=== PATIENT | female | born 1930 | race Caucasian/White ===

== ENCOUNTER 2020-06-18 16:57 | Inpatient (IN) ==
[2020-06-18 18:34] LABS: ABS Eosinophils 0.1 10^3/ul (0-0.6); ABS Lymphocytes 1.2 10^3/ul (1.0-4.8); ABS Monocytes 0.6 10^3/ul (0-0.8); Eosinophil % 1.5 %; Hematocrit 42 % (35-47); Hemoglobin 14.3 g/dL (12.0-16.0); Lymphocyte % 12.1 %; Mean Corpuscular HGB Conc 34 g/dL (31-36); Mean Corpuscular Hemoglobin 29 pg (27-31); Mean Corpuscular Volume 86 fL (80-97); Mean Platelet Volume 8.3 fL (7.4-10.4); Nucleated Red Blood Cells % 0.1; Platelet Count 208 10^3/uL (150-450); Red Blood Count 4.94 10^6 /uL (3.70-4.87); Red Cell Distribution Width 16 % (10-15)
[2020-06-18 18:49] LABS: Albumin 3.9 g/dL (3.2-5.2); Albumin/Globulin Ratio 1.3 (1-3); BUN/Creatinine Ratio 22.9 (8-20); C Reactive Protein 30.7 mg/L (<8.01); Calcium 9.3 mg/dL (8.6-10.3); EGFR African American 95.3 (>60); EGFR Non-African American 78.8 (>60); Potassium 3.8 mmol/L (3.5-5.0); Total Protein 6.9 g/dL (6.4-8.9)
[2020-06-18 18:52] LABS: Urine Appearance Turbid; Urine Bilirubin Negative (Negative); Urine Blood 1+ (Negative); Urine Color Yellow; Urine Glucose Negative (Negative); Urine Ketones Trace (Negative); Urine Nitrite Positive (Negative); Urine Protein Negative (Negative); Urine Specific Gravity 1.018 (1.010-1.030); Urine Urobilinogen Negative (Negative)
[2020-06-18 18:54] LABS: Urine Bacteria 3+ (Absent); Urine Red Blood Cell 3+(>10/hpf) (Absent); Urine White Blood Cell 3+(>20/hpf) (Absent)
[2020-06-18] MEDS ORDERED: Ondansetron 4 mg VIAL 2 MG/ML 2 ml VIAL IV PRN (19:52)
[2020-06-18] MEDS ORDERED: Senna TAB 8.6 mg TAB PO PRN (19:58)
[2020-06-18 20:25] LABS: Activated Partial Thrombo Time 29.7 seconds (26.0-38.0); INR 1.12 (0.82-1.09)
[2020-06-18] MEDS ORDERED: cefTRIAXone 1 gm/50 mL NS BAG 1 GM/50 ML BAG IVPB ONE (21:00)
[2020-06-18] MEDS ORDERED: Heparin 5000 UNITS/ML 1 mL VIAL SUBCUT SCH (22:00)
[2020-06-18] MEDS: NS 0.9% 1000 ml BAG 1,000 ML IV SCH (22:03)
[2020-06-19 06:59] LABS: ABS Eosinophils 0.1 10^3/ul (0-0.6); ABS Lymphocytes 1.4 10^3/ul (1.0-4.8); ABS Monocytes 0.7 10^3/ul (0-0.8); ABS Neutrophils 6.6 10^3/ul (1.5-7.7); Eosinophil % 1.4 %; Hematocrit 39 % (35-47); Hemoglobin 13.6 g/dL (12.0-16.0); Lymphocyte % 15.6 %; Mean Corpuscular HGB Conc 35 g/dL (31-36); Mean Corpuscular Hemoglobin 30 pg (27-31); Mean Corpuscular Volume 85 fL (80-97); Mean Platelet Volume 8.5 fL (7.4-10.4); Platelet Count 189 10^3/uL (150-450); Red Cell Distribution Width 15 % (10-15); White Blood Count 8.8 10^3/uL (3.5-10.8)
[2020-06-19 07:10] LABS: INR 1.16 (0.82-1.09)
[2020-06-19 07:29] LABS: BUN/Creatinine Ratio 21.9 (8-20); Calcium 8.8 mg/dL (8.6-10.3); EGFR African American 90.8 (>60); EGFR Non-African American 75.1 (>60); Potassium 4.2 mmol/L (3.5-5.0)
[2020-06-19] MEDS ORDERED: Morphine 2 MG/ML SYRINGE IV PRN (12:33)
[2020-06-19 13:24] LABS: INR 1.11 (0.82-1.09)
[2020-06-19] MEDS ORDERED: Heparin 5000 UNITS/ML 1 mL VIAL SUBCUT SCH (14:00)
[2020-06-19] MEDS ORDERED: fentaNYL 100 mcg/2 ml 50 MCG/ML VIAL ONE (15:55)
[2020-06-19] MEDS ORDERED: Clindamycin 900 MG/D5W BAG 900 MG/50 ML BAG IVPB ONE (16:06)
[2020-06-19] MEDS ORDERED: Ketamine HCL 50 mg/ml 10 ml VIAL (500 MG) ONE (16:10)
[2020-06-19] MEDS ORDERED: Midazolam 2 mg/2 ml VIAL 1 mg/ml 2 ml VIAL (2 mg) ONE (16:10)
[2020-06-19] MEDS ORDERED: Phenylephrine 40 mcg/mL 10mL (400mcg) SYRINGE ONE ×2 (17:26→18:05)
[2020-06-19] MEDS ORDERED: fentaNYL 100 mcg/2 ml 50 MCG/ML VIAL IV PRN (17:37)
[2020-06-19] MEDS ORDERED: HYDROcodone/ACETAMIN 5/325 mg TAB PO PRN (17:37)
[2020-06-19] MEDS ORDERED: DiMENhydriNATE IV 50 mg/ml 1 ml VIAL IV PUSH PRN (17:37)
[2020-06-19] MEDS ORDERED: Naloxone 0.4 mg VIAL 0.4 mg/ml 1 ml VIAL IV PRN (17:37)
[2020-06-19] MEDS ORDERED: Propofol 10 MG/ML 20 ML BTL ONE (18:02)
[2020-06-19] MEDS ORDERED: EPHEDrine (Pressors) 50 MG/ML VIAL ONE (18:05)
[2020-06-19] MEDS: NS 0.9% 1000 ml BAG 1,000 ML IV SCH (23:00)
[2020-06-19] MEDS: cefTRIAXone 1 gm/50 mL NS BAG 1 GM/50 ML BAG IVPB SCH (23:00)
[2020-06-20] MEDS: Clindamycin 600 MG/D5W BAG 600 MG/50 ML BAG IV SCH ×3 (02:51→18:35)
[2020-06-20 04:39] LABS: ABS Lymphocytes 0.7 10^3/ul (1.0-4.8); ABS Monocytes 0.9 10^3/ul (0-0.8); ABS Neutrophils 9.1 10^3/ul (1.5-7.7); Eosinophil % 0.2 %; Hematocrit 34 % (35-47); Hemoglobin 11.6 g/dL (12.0-16.0); Lymphocyte % 6.8 %; Mean Corpuscular HGB Conc 34 g/dL (31-36); Mean Corpuscular Hemoglobin 29 pg (27-31); Mean Corpuscular Volume 85 fL (80-97); Mean Platelet Volume 8.1 fL (7.4-10.4); Platelet Count 197 10^3/uL (150-450); Red Blood Count 4.03 10^6 /uL (3.70-4.87); Red Cell Distribution Width 15 % (10-15); White Blood Count 10.7 10^3/uL (3.5-10.8)
[2020-06-20 08:39] LABS: BUN/Creatinine Ratio 19.7 (8-20); Calcium 7.9 mg/dL (8.6-10.3); EGFR African American 111.7 (>60); EGFR Non-African American 92.4 (>60); Potassium 3.8 mmol/L (3.5-5.0)
[2020-06-20] MEDS: Enoxaparin 30 MG/0.3 ML SYR SUBCUT SCH (08:39)
[2020-06-20] MEDS: Docusate LIQ 100 MG/10 ML UDC PO SCH ×2 (08:44→22:19)
[2020-06-20] MEDS ORDERED: Magnesium Hydroxide LIQ 30 ML UDC PO PRN (09:19)
[2020-06-20] MEDS ORDERED: Senna TAB 8.6 mg TAB PO PRN (09:19)
[2020-06-20] MEDS: Polyethylene Glycol 3350 17 GM PACKET PO PRN (09:36)
[2020-06-20] MEDS ORDERED: NS 0.9% 1000 ml BAG 1,000 ML IV ONE (11:59)
[2020-06-20 12:05] LABS: Hematocrit 33 % (35-47); Hemoglobin 11.1 g/dL (12.0-16.0); Mean Corpuscular HGB Conc 34 g/dL (31-36); Mean Corpuscular Hemoglobin 29 pg (27-31); Mean Corpuscular Volume 85 fL (80-97); Mean Platelet Volume 8.5 fL (7.4-10.4); Platelet Count 222 10^3/uL (150-450); Red Blood Count 3.87 10^6 /uL (3.70-4.87); Red Cell Distribution Width 16 % (10-15)
[2020-06-20] MEDS: NS 0.9% 1000 ml BAG 1,000 ML IV SCH (13:01)
[2020-06-20 18:29] LABS: ABS Lymphocytes 1.2 10^3/ul (1.0-4.8); ABS Monocytes 0.9 10^3/ul (0-0.8); ABS Neutrophils 9.4 10^3/ul (1.5-7.7); Eosinophil % 0.3 %; Hematocrit 33 % (35-47); Lymphocyte % 10.3 %; Mean Corpuscular HGB Conc 34 g/dL (31-36); Mean Corpuscular Hemoglobin 29 pg (27-31); Mean Corpuscular Volume 86 fL (80-97); Mean Platelet Volume 8.6 fL (7.4-10.4); Platelet Count 202 10^3/uL (150-450); Red Blood Count 3.79 10^6 /uL (3.70-4.87); Red Cell Distribution Width 15 % (10-15); White Blood Count 11.5 10^3/uL (3.5-10.8)
[2020-06-20 20:50] LABS: C Reactive Protein 169.45 mg/L (<8.01)
[2020-06-20 21:21] LABS: Troponin I 0.15 ng/mL (<0.03)
[2020-06-20] MEDS: Magnesium Hydroxide LIQ 30 ML UDC PO SCH (22:19)
[2020-06-20] MEDS: cefTRIAXone 1 gm/50 mL NS BAG 1 GM/50 ML BAG IVPB SCH (22:19)
[2020-06-21 00:53] LABS: Troponin I 0.17 ng/mL (<0.03)
[2020-06-21] MEDS: NS 0.9% 1000 ml BAG 1,000 ML IV SCH ×2 (04:28→17:42)
[2020-06-21 06:04] LABS: ABS Lymphocytes 1.1 10^3/ul (1.0-4.8); ABS Neutrophils 9.6 10^3/ul (1.5-7.7); Eosinophil % 0.3 %; Hematocrit 33 % (35-47); Hemoglobin 11.3 g/dL (12.0-16.0); Lymphocyte % 9.6 %; Mean Corpuscular HGB Conc 34 g/dL (31-36); Mean Corpuscular Hemoglobin 29 pg (27-31); Mean Corpuscular Volume 85 fL (80-97); Mean Platelet Volume 8.3 fL (7.4-10.4); Nucleated Red Blood Cells % 0.1; Platelet Count 190 10^3/uL (150-450); Red Blood Count 3.89 10^6 /uL (3.70-4.87); Red Cell Distribution Width 16 % (10-15); White Blood Count 11.8 10^3/uL (3.5-10.8)
[2020-06-21 06:28] LABS: Anion Gap 4 mmol/L (2-11); CO2 Carbon Dioxide 29 mmol/L (22-32); Calcium 7.9 mg/dL (8.6-10.3); Chloride 106 mmol/L (101-111); Potassium 3.6 mmol/L (3.5-5.0); Sodium 139 mmol/L (135-145)
[2020-06-21 06:34] LABS: BUN/Creatinine Ratio 14.5 (8-20); Blood Urea Nitrogen 9 mg/dL (6-24); EGFR African American 109.7 (>60); EGFR Non-African American 90.6 (>60); Glucose 129 mg/dL (70-100)
[2020-06-21] MEDS: Docusate LIQ 100 MG/10 ML UDC PO SCH ×2 (07:30→21:36)
[2020-06-21 08:11] LABS: Troponin I 0.16 ng/mL (<0.03)
[2020-06-21] MEDS: Polyethylene Glycol 3350 17 GM PACKET PO PRN (09:48)
[2020-06-21] MEDS: Enoxaparin 30 MG/0.3 ML SYR SUBCUT SCH (09:48)
[2020-06-21] MEDS: Magnesium Hydroxide LIQ 30 ML UDC PO SCH ×2 (09:49→21:36)
[2020-06-21] MEDS: cefTRIAXone 1 gm/50 mL NS BAG 1 GM/50 ML BAG IVPB SCH (21:36)
[2020-06-22 05:36] LABS: ABS Eosinophils 0.2 10^3/ul (0-0.6); ABS Lymphocytes 1.5 10^3/ul (1.0-4.8); ABS Monocytes 0.8 10^3/ul (0-0.8); ABS Neutrophils 6.9 10^3/ul (1.5-7.7); Hematocrit 28 % (35-47); Mean Corpuscular HGB Conc 35 g/dL (31-36); Mean Corpuscular Hemoglobin 30 pg (27-31); Mean Corpuscular Volume 85 fL (80-97); Mean Platelet Volume 8.8 fL (7.4-10.4); Platelet Count 179 10^3/uL (150-450); Red Blood Count 3.34 10^6 /uL (3.70-4.87); Red Cell Distribution Width 15 % (10-15); White Blood Count 9.4 10^3/uL (3.5-10.8)
[2020-06-22 05:54] LABS: BUN/Creatinine Ratio 18.4 (8-20); Calcium 7.4 mg/dL (8.6-10.3); EGFR African American 143.9 (>60); EGFR Non-African American 118.9 (>60); Potassium 3.5 mmol/L (3.5-5.0)
[2020-06-22] MEDS: NS 0.9% 1000 ml BAG 1,000 ML IV SCH (06:37)
[2020-06-22] MEDS: Enoxaparin 30 MG/0.3 ML SYR SUBCUT SCH (08:54)
[2020-06-22] MEDS: Docusate LIQ 100 MG/10 ML UDC PO SCH (08:54)
[2020-06-22] MEDS: Magnesium Hydroxide LIQ 30 ML UDC PO SCH (09:19)
[2020-06-22 15:38] VITALS: BP 106/50
== END 2020-06-22 16:30 | disposition swing bed (61) | DRG 469 ==
LOC: ED 16:57 → SSU 19:43
PROVIDERS: ADMIT Nurse Practitioner Family; ATTEND Internal Medicine